=== PATIENT | male | born 1965 | race Caucasian/White ===

== ENCOUNTER → 2016-10-10 | Outpatient (CLI) | payer OTHER ==
--- NOTE | 2016-10-10 15:35 | CONS ---
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 SLEEP SCHEDULE: Patient's usual sleep schedule is from 11:00 p.m. to 6:30 a.m. FALLING ASLEEP: No problem with falling asleep. He has a TV set in bedroom. DURING SLEEP: Wakes up from sleep 3 times with nocturia. According to his , he has loud snoring and possible episodes of stopped breathing during this sleep. He hears some interruption of the snoring. DURING THE DAY/WAKE STATE: In the morning he wakes up tired, falling asleep during the day. He takes naps at around 1:00 p.m. No vivid dreams during naps. No history of hypnagogical hallucinations or sleep paralysis. [place] Sleepiness Scale is 8. PAST MEDICAL HISTORY: Positive for hypertension, acid reflux and hyperlipidemia. PAST SURGICAL HISTORY: ( ) surgery after trauma in 1991. MEDICATIONS: 1. Zocor. 2. Lisinopril. 3. Metoprolol. 4. Famotidine. 5. Aspirin. 6. Vitamin D supplement. 7. Fish oil. SOCIAL HISTORY: Negative for smoking or using alcohol. REVIEW OF SYSTEMS: Snoring, awakenings from sleep. Sometimes tiredness during the day. No fevers. No double vision. No recent chest pain. No shortness of breath. No abdominal pain. No bleeding episodes. No blood in urine. No seizure episodes. FAMILY HISTORY: Hypertension, angina, heart problems, hyperlipidemia, stroke, arthritis, lung problems, snoring, pneumonia, headaches, cancer, diabetes, acid reflux. PHYSICAL EXAMINATION: GENERAL: A 51-year-old gentleman without distress. VITAL SIGNS: BP 143/95, HR 68, RR 16. Height 5 foot 11. Weight 344. BMI 47.9, neck 21 inches in circumference. Temperature 97.5. Oxygen saturation at room air 98%. HEENT: PERRLA, EOMI evaluation of oropharynx showed extremely low position of soft palate. NECK: Supple. No JVD. Thyroid is not palpable. LUNGS: Clear to percussion and to auscultation. Good air exchange. No wheezing or rhonchi. HEART: S1, S2 regular. No murmurs, gallops or rubs. ABDOMEN: Obese. Soft and nontender. Bowel sounds are present. No organomegaly appreciated. EXTREMITIES: 1+ ankle edema. ASSISTANT SPA DIRECTOR: Awake, alert, and oriented x3. Cranial nerves 2 to 7 intact. There is no fasciculation or atrophy noted. No focal deficits observed. IMPRESSION: 1. Snoring, awakenings from sleep 3 times with nocturia, possible witnessed episodes of stopped breathing during sleep by his . Big neck 21 inches, obstructive sleep apnea-hypopnea syndrome. 2. Obesity, body mass index 47.9. 3. Hypertension. 4. Acid reflux. 5. Hyperlipidemia. 6. Slight swelling of the legs. 7. Status post face surgery in 1991 after trauma. 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 PLAN: 1. Polysomnography for evaluation of patient's breathing during sleep. 2. CPAP/BiPAP titration if sleep study confirms obstructive sleep apnea-hypopnea syndrome. 3. Preferable position during sleep on the side. 4. No driving if patient feels any sleepiness. Patient is aware of civil and criminal liability for unsafe driving. 5. I will see patient for follow-up visit to explain results of the testing and following plan. 6. I will see the patient for follow-up visit to check his clinical response on treatment, compliance on treatment. 7. He might need maintenance of wakefulness test or objective evaluation, his normal alertness during the day after he will be started on treatment with CPAP. Thank you very much for referring this patient for consultation. Sincerely, Thaddeus Jacobo MD, PhD, FAASM. Diplomat of [employer], Sleep Medicine Board by [employer] Medicine Pickling Machine Operator of [facility] [place]
== END | disposition home or self-care (01) ==
CPT/HCPCS: 99211

== ENCOUNTER → 2016-12-19 | Outpatient (CLI) | payer OTHER ==
--- NOTE | 2016-12-19 15:23 | PN ---
A 51-year-old gentleman who has been followed in the Sleep Center for treatment of severe obstructive sleep apnea-hypopnea syndrome. Recently patient had a diagnostic sleep study and CPAP titration and I discussed results of sleep test with patient and family in detail. He has severe sleep apnea, which was fixed during CPAP titration. Presently, patient is on treatment with CPAP at the pressure of 14 cm of water. Patient demonstrated usage of the machine 29 out of 30 nights and 23 out of 30 nights for more than 4 hours, average usage is 5.3 hours. Patient has quite high leak up to 59 L/min, but his mask was changed from nasal pillows to nasal mask but apnea-hypopnea index reading for the last month is great is only 0.4. [place] Sleepiness Scale is 1. MEDICATIONS: Zocor, lisinopril, metoprolol, famotidine, aspirin, fish oil, vitamin D supplement. During physical exam, gentleman without distress. BP 143/95, HR 68, RR 16. Height 5, 11. Weight 344. BMI 47.9. Neck 21 inches in circumference. Temperature 97.5. Extremely low position of soft palate. ABDOMEN: Obese. NECK: Supple. No JVD, Thyroid is not palpable. LUNGS: Clear to percussion and to auscultation. Good air exchange. No wheezing or rhonchi. HEART: S1, S2 regular. No murmurs, gallops, or rubs. OCCUPATIONAL HEALTH TECHNICIAN: Awake, alert, and oriented x3. Cranial nerves 2 to 7 intact. There is no fasciculation or atrophy noted. No focal deficits observed. IMPRESSION: 1. Extremely severe obstructive sleep apnea-hypopnea syndrome, apnea-hypopnea index 89.1 with severe oxygen desaturation to 66.9 on control with CPAP at 14 cm of water. Patient demonstrated good compliance definitely benefiting from treatment. 2. 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 I think his sleep time is slightly restricted, average 5.3 hours. He denied any sleepiness during the day. 3. Hypertension. 4. Acid reflux. 5. Hyperlipidemia. 6. Obesity, body mass index more than 48. PLAN: 1. Continue treatment with CPAP every night for the whole night. 2. Try to increase time in bed, my recommendation is 7-1/2 hours. 3. Maintenance of wakefulness test. 4. 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 5. Losing weight. 6. Sleep hygiene. 7. Precautions related to driving, no driving if feeling any sleepiness. Patient is aware about civil and criminal liability for unsafe lifter driver. Promised to follow recommendations. Thank you very much for allowing me to participate in the management of your patient. Sincerely, Thaddeus Jacobo MD, PhD, FAASM Diplomat of [employer] Medicine, Sleep Medicine Board by [employer] Medicine Director Of Training of [facility] [place]
== END | disposition home or self-care (01) ==
LOC: SLEEP 11:40
PROVIDERS: ATTEND Internal Medicine
DX: G47.33 Obstructive sleep apnea (adult) (pediatric) (principal); I10 Essential (primary) hypertension; K21.9 Gastro-esophageal reflux disease without esophagitis; E78.5 Hyperlipidemia, unspecified; E66.9 Obesity, unspecified; Z68.42 Body mass index [BMI] 45.0-49.9, adult; Z79.899 Other long term (current) drug therapy

== ENCOUNTER → 2017-01-06 | Outpatient (CLI) | payer OTHER ==
--- NOTE | 2017-01-09 22:08 | SLS ---
Maintenance of wakefulness test DATE OF SERVICE: 01/06/2017. 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 The standard montage for clinical polysomnography included electroencephalogram, the electrooculogram, the mentalis surface electromyography. Video monitoring. Trial was done for time by 14 minutes. Patient passed maintenance of wakefulness test, did not fall asleep during the four trials. IMPRESSION: 1. Extremely severe obstructive sleep apnea-hypopnea syndrome. 2. The patient passed maintenance of wakefulness test, which indicates his normal alertness during the day. PLAN: 1. I will see the patient for follow-up visit to explain the results of test and recommendations. 2. Continue using the CPAP equipment every night. 3. Precautions related to driving, no driving if feeling any sleepiness. 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 Thank you very much for allowing me to participate in the management your patient. Sincerely, Thaddeus Jacobo MD, PhD, FAASM. Diplomat of [place] [employer], Sleep Medicine Board by [place] [employer] [place] Retail Service Specialist of [facility] [place]
== END | disposition home or self-care (01) ==
LOC: SLEEP 06:41
PROVIDERS: ATTEND Internal Medicine
DX: G47.33 Obstructive sleep apnea (adult) (pediatric) (principal); Z99.89 Dependence on other enabling machines and devices; E66.9 Obesity, unspecified; Z68.42 Body mass index [BMI] 45.0-49.9, adult; I10 Essential (primary) hypertension; K21.9 Gastro-esophageal reflux disease without esophagitis; Z79.899 Other long term (current) drug therapy; E78.5 Hyperlipidemia, unspecified
CPT/HCPCS: 80306; 95805

== ENCOUNTER → 2017-02-03 | Outpatient (CLI) | payer OTHER ==
--- NOTE | 2017-02-03 13:01 | EST ---
DATE OF SERVICE: 02/03/2017 AGE: 51Y SEX: M HT: 72" WT: 334 lbs. Protocol Jerel: X Other: Stress Stage: 2 Dur. of Exercise: 6:00 *Heart Rate Blood Pressure *Rest: 76 Rest: 150/95 * *Max. Achieved: 156 Maximum BP: 231/93 85% PMHR: 143 100% PMHR: 168 *METS: 7.3 INDICATIONS: Chest pain. MEDICATIONS: Cholesterol pill, BP pill, aspirin, fish oil, vitamin D. Baseline rhythm is sinus mechanism, rate of 76, normal axis and intervals. Normal electrocardiogram. Baseline blood pressure 150/95 mmHg. Patient exercised on Jerel protocol for 6 minutes reaching peak rate of 156 beats per minute, which is equal to 92% maximum predicted heart rate; peak blood pressure 231/93 mmHg. The test was terminated due to fatigue. There was no chest pain. Electrocardiographic monitoring revealed occasional PVCs. There was no evidence of diagnostic ischemic ST deviation. CONCLUSION: 1. Average exercise tolerance with no symptoms of chest pain. 2. Occasional premature ventricular contractions. 3. Normal electrocardiograph response to exercise with no evidence exercise-induced ischemia.
== END | disposition home or self-care (01) ==
LOC: RADNMMAIN 11:29
PROVIDERS: ATTEND Internal Medicine
DX: R07.9 Chest pain, unspecified (principal)
CPT/HCPCS: 93017

== ENCOUNTER → 2017-05-26 | Outpatient (CLI) | payer OTHER ==
--- NOTE | 2017-05-26 11:41 | XR ---
EXAMINATION TYPE: XR shoulder complete RT DATE OF EXAM: 05/26/2017 COMPARISON: NONE HISTORY: Pain TECHNIQUE: Shoulder examined in 3 FINDINGS: The humeral head articulates with the glenoid. There may be some downward sloping acromion. The acromioclavicular junction appears intact with minim al inferior spurring. No acute fractures or dislocations are evident. A follow up study can be performed 7-10 days from acute trauma for continued pain. IMPRESSION: 1. No suspicious osseous changes evident. 2. Mild degenerative change acromioclavicular junction
--- NOTE | 2017-05-26 11:46 | XR ---
EXAMINATION TYPE: XR cervical spine comp DATE OF EXAM: 05/26/2017 TECHNIQUE: Frontal, lateral, oblique, swimmers, and open mouth view of the cervical spine are obtaine d. HISTORY: M54.2 cervical pain COMPARISON: None FINDINGS: The cervical spine is visualized in its entirety from C1 thru the top of T1 level, it is s atisfactory in alignment without evidence of acute fracture or dislocation. The pre-vertebral soft t issue appears within normal limits. Odontoid appears unremarkable as visualized. Tip is somewhat obsc ured by the occiput. The oblique images are within normal limits. Cervical spine is straightened in t he sagittal plane. IMPRESSION: No acute fracture or dislocation is seen in the cervical spine.
== END ==
LOC: RADXRMAIN 10:17
PROVIDERS: ATTEND Internal Medicine
DX: M54.2 Cervicalgia (principal); M19.011 Primary osteoarthritis, right shoulder
CPT/HCPCS: 72050

== ENCOUNTER 2017-08-05 07:19 | Day surgery (SDC) | payer OTHER ==
[2017-08-01 14:49] VITALS: BMI 44.7
[~2017-08-05 07:19] MED LIST: LACTATED RINGERS 1,000 ML IV SCH
[2017-08-05 07:30] VITALS: RESP 16; TEMP 98.6
[2017-08-05] MEDS ORDERED: LIDOCAINE 1% 20 ML VIAL (10MG/ML) FOR IV START INTRADERMA ONE (07:39)
[2017-08-05] MEDS ORDERED: LIDOCAINE 1% INJ 10MG/ML (20 ML MDV) ONE (08:44)
[2017-08-05] MEDS ORDERED: PROPOFOL 10 MG/ML 20 ML VIAL IV ONE (08:44)
--- NOTE | 2017-08-05 09:07 | P.DS ---
Providers Attending physician: Dior Mcdonald Primary care physician: Chicho Alberts Plan - Discharge Summary New Discharge Prescriptions: No Action Metoprolol Tartrate 25 mg PO BID Simvastatin [Zocor] 40 mg PO DAILY Lisinopril [Prinivil] 20 mg PO DAILY Aspirin [Adult Low Dose Aspirin EC] 81 mg PO DAILY Cholecalciferol [Vitamin D3] 1,000 unit PO DAILY Sabina-3 Fatty Acids/Fish Oil [Fish Oil 1,000 mg Softgel] 1 each PO DAILY Discharge Medication List Aspirin [Adult Low Dose Aspirin EC] 81 mg PO DAILY 04/05/16 [History] Lisinopril [Prinivil] 20 mg PO DAILY 04/05/16 [History] Metoprolol Tartrate 25 mg PO BID 04/05/16 [History] Simvastatin [Zocor] 40 mg PO DAILY 04/05/16 [History] Cholecalciferol [Vitamin D3] 1,000 unit PO DAILY 08/01/17 [History] Sabina-3 Fatty Acids/Fish Oil [Fish Oil 1,000 mg Softgel] 1 each PO DAILY [History] Discharge Disposition: HOME SELF-CARE
--- NOTE | 2017-08-05 09:07 | P.PCN ---
Date of Procedure: 08/05/17 Preoperative Diagnosis: Patient is a 52-year-old white male with a prior history of an adenomatous polyp of the colon he comes for repeat colonoscopy Postoperative Diagnosis: Polyp in right colon, scattered diverticuli, internal hemorrhoids Procedure(s) Performed: Colonoscopy Anesthesia: MAC Surgeon: Dior Mcdonald Estimated Blood Loss (ml): 0 IV fluids (ml): 200 Pathology: other (Polyp right colon removed with snare polypectomy and retrieved ) Condition: stable Disposition: PACU Indications for Procedure: Prior history of adenomatous colon polyp Operative Findings: Colon polyp removed with snare polypectomy and retrieved, in proximity questionable heaped up mucosa near the area of the diverticular opening Beginning of small diverticuli Internal hemorrhoids Description of Procedure: Patient was taken to the endoscopy room and placed in the left lateral decubitus position. Following sedation rectal examination was performed. Patient was noted to have adequate sphincter tone no masses. Colonoscope was passed through the anus into the rectum. Was passed through the sigmoid colon up to splenic flexure. Through the transverse colon hepatic flexure right colon down to the area of the cecum. In the distal right colon there appeared to be a small polyp and this was removed with snare polypectomy and retrieved. The proximity of this initially there was seen a small mucosal change which was believed to be possibly near diverticulum and this was not felt to more biopsy at this time. Upon removal of the scope proximally 6 minutes were taken to remove the scope from the area of the cecum to the rectum. No lesions of concern were noted in the cecum no other lesions of concern in the right colon. No lesions of concern in the transverse colon. No lesions of concern in the left colon and the sigmoid colon beginning of diverticular pets identified. Scope was brought down to the rectum where it was retroflexed internal hemorrhoids identified. Impression/plan: 1. Internal hemorrhoids 2. Beginning of diverticuli 3. Polyp right colon removed with snare polypectomy and retrieved 4. Questionable mucosal change in the vicinity which was not reproduced and did not undergo biopsy Plan: 1. Conservative management of hemorrhoids and diverticuli 2. Await results of polypectomy most likely repeat colonoscopy in 3-5 years
[2017-08-05 09:37] VITALS: BP 124/67; PULSE 63
== END 2017-08-05 09:53 | disposition home or self-care (01) ==
LOC: ORWHC2ENDO 07:19
PROVIDERS: ATTEND Surgery
DX: Z12.11 Encounter for screening for malignant neoplasm of colon (principal); K63.5 Polyp of colon; K57.30 Diverticulosis of large intestine without perforation or abscess without bleeding; K64.8 Other hemorrhoids; E78.5 Hyperlipidemia, unspecified; M19.90 Unspecified osteoarthritis, unspecified site; I10 Essential (primary) hypertension; K21.9 Gastro-esophageal reflux disease without esophagitis; G47.33 Obstructive sleep apnea (adult) (pediatric); I25.2 Old myocardial infarction; Z79.82 Long term (current) use of aspirin; Z79.899 Other long term (current) drug therapy; Z86.010 Personal history of colon polyps; Z82.49 Family history of ischemic heart disease and other diseases of the circulatory system
CPT/HCPCS: 45385; 88305; J2001; J2704

== ENCOUNTER → 2017-10-11 | Outpatient (CLI) | payer OTHER ==
--- NOTE | 2017-10-12 00:25 | MR ---
EXAMINATION TYPE: MR knee RT wo con DATE OF EXAM: 10/11/2017 COMPARISON: NONE HISTORY: Right knee pain after slip and fall injury 4 weeks ago. TECHNIQUE: Multiplanar, multisequence images of the knee is performed without IV contrast. FINDINGS: MEDIAL MENISCUS: Anterior horn is intact without tear. There is globular and triangular-shaped increa sed signal posterior horn of medial meniscus extending to inferior articular surface. There is medial extrusion of medial meniscus on coronal images increased signal central body. LATERAL MENISCUS: Anterior horn is intact without tear. There is globular increased signal deeper asp ect posterior horn of lateral meniscus seen best coronal image 26 and sagittal image 24 does not defi nitely extend to articular surface. CRUCIATE LIGAMENTS: The anterior and posterior cruciate ligaments are intact and unremarkable. COLLATERAL LIGAMENTS: The medial collateral ligament and lateral collateral ligament complex are inta ct. Mild to moderate fluid signal surrounds lateral collateral ligament complex is seen best on coron al image 23 and mild fluid signal surrounds medial collateral ligament. EXTENSOR MECHANISM: Visualized quadriceps and patellar tendons are intact. EFFUSION: There is large suprapatellar joint effusion. POPLITEAL CYST: No popliteal/lopez cyst. TRICOMPARTMENT SPACES: There is moderate tricompartment joint space loss and spurring. CARTILAGE: There is chondromalacia patella with thinning of articular cartilage posterior patellar po le. No full-thickness loss is present. There is marked thinning of articular cartilage medial tibiofe moral compartment with some early erosive changes seen at this level. BONE MARROW SIGNAL: No focal abnormal marrow signal is appreciated. OTHER: There is prominent prepatellar and superficial infrapatellar fluid signal. IMPRESSION: 1. Full-thickness tear posterior horn of medial meniscus extending towards central body along medial margin. 2. Background moderate tricompartment degenerative changes with full-thickness cartilaginous loss and early osseous erosive changes medial tibiofemoral compartment noted. 3. Large suprapatellar joint effusion. 4. Intrasubstance tear posterior horn of lateral meniscus. 5. [id number] LCL sprain injury. 6. Mild MCL sprain injury.
== END | disposition home or self-care (01) ==
LOC: RADMRIMAIN 08:58
PROVIDERS: ATTEND Internal Medicine
DX: S83.241A Other tear of medial meniscus, current injury, right knee, initial encounter (principal); S83.281A Other tear of lateral meniscus, current injury, right knee, initial encounter

== ENCOUNTER → 2017-11-25 | Outpatient (CLI) | payer OTHER ==
--- NOTE | 2017-11-25 15:25 | PN ---
PROGRESS NOTE This is a followup from Sleep Center. This is a very pleasant, obese, 52-year-old male patient diagnosed having severe symptomatic obstructive sleep apnea with an AHI of 89.1. Initially the patient was titrated to a CPAP pressure of 17 cm of water. He had difficulty tolerating the CPAP and ultimately his pressure was dropped down to 14 cm of water. He is coming in for an annual check. He is looking well. He is going to bed around 11:30 p.m., wakes up 6:00 a.m. in the morning. He feels refreshed. He is utilizing his CPAP every night. He continues to benefit from the treatment and he states that he cannot fall asleep without having the machine on. His compliance data reflects that. He is utilizing his CPAP every night. His compliancy for more than 4 hours is 100% and he is averaging around 6.7 hours of sleep at night. His AHI is down to 0.4 while on treatment. His leak factor is 53 L/minute and the patient utilizing a Mirage wide FX nose mask. No recent weight gain or weight loss. No other complaints otherwise for now. REVIEW OF SYSTEMS: Hypersomnia and sleepiness has improved. No snoring while on the CPAP treatment. Denies having any nocturia. No apneas at nighttime. No waking up choking or gasping for air. No grinding of the teeth. No anxiety or panic attacks. No palpitation. No heartburn and chest pain. No anxiety. No depression. No claustrophobia. No other complaints. His current vital signs: His blood pressure is 159/88, pulse 88, respirations 16, temperature 98 saturation 96% on room air. Weight is 350, height is 71 inches, BMI 66.1, and neck size 22.5. [place] score is 1. GENERAL APPEARANCE: Obese, calm, comfortable. Head is atraumatic, normocephalic. Neck is short supple. No guarding. There is excessive crowding of posterior pharynx. No goiter or neck masses. LUNGS: Diminished otherwise clear. HEART: Sounds regular rhythm. Normal S1, S2. No S3. No murmurs. ABDOMEN: Soft, nontender. No organomegaly. EXTREMITIES: No edema. No cyanosis or clubbing. NEUROLOGIC: Alert and oriented x3. There is no focal neurological deficits. PSYCHIATRIC: Appropriate mood and affect. SKIN: No ulcerations or wounds. IMPRESSION: 1. Severe symptomatic obstructive sleep apnea with an AHI of 89, currently on CPAP pressure of 14 cm of water with excellent clinical response and compliance. The patient continues to benefit from the treatment and the patient is very compliant. 2. Hypersomnia recovered. [place] score is down to 1. 3. Obesity with a BMI of 66. 4. Hypertension. 5. Hyperlipidemia. PLAN: 1. I noted the patient was having excessive leaks around the mask. I offered them an AirFit N10 large-sized nose mask if he would like and he decided to switch the mask from a Vazquez FX to an AirFit N10. 2. Continue same pressure setting which would be a CPAP pressure of 14 cm of water. 3. Keep the humidity at 1. 4. Encourage weight loss. 5. Implement good sleep hygiene measures. 6. See me back in a year's time in follow up or earlier if needed. MMROMEL / IJN: [id number] /
== END | disposition home or self-care (01) ==
LOC: SLEEP 13:31
PROVIDERS: ATTEND Internal Medicine Critical Care Medicine
DX: G47.33 Obstructive sleep apnea (adult) (pediatric) (principal); G47.10 Hypersomnia, unspecified; E66.9 Obesity, unspecified; I10 Essential (primary) hypertension; E78.5 Hyperlipidemia, unspecified; Z68.44 Body mass index [BMI] 60.0-69.9, adult; Z99.89 Dependence on other enabling machines and devices
CPT/HCPCS: 99211

== ENCOUNTER → 2017-12-09 | Outpatient (CLI) | payer OTHER ==
[2017-12-09 13:36] LABS: Basophils % (A) 0 %; Eosinophils # (A) 0.1 k/uL (0-0.7); Eosinophils % (A) 1 %; HCT 45.8 % (39.0-53.0); HGB 15.9 gm/dL (13.0-17.5); Lymphocytes # (A) 1.1 k/uL (1.0-4.8); Lymphocytes % (A) 13 %; MCH 29.3 pg (25.0-35.0); MCHC 34.8 g/dL (31.0-37.0); MCV 84.2 fL (80.0-100.0); Mean Platelet Volume 6.9; Monocytes # (A) 0.5 k/uL (0-1.0); Monocytes % (A) 6 %; Neutrophils # (A) 6.4 k/uL (1.3-7.7); Neutrophils % (A) 78 %; Platelet Count 261 k/uL (150-450); RBC 5.43 m/uL (4.30-5.90); RDW 12.6 % (11.5-15.5); WBC 8.2 k/uL (3.8-10.6)
[2017-12-09 13:47] LABS: ALT 42 U/L (21-72); AST 27 U/L (17-59); Albumin 4.2 g/dL (3.5-5.0); Alkaline Phosphatase 110 U/L (38-126); Amylase 36 U/L (30-110); Anion Gap 12 mmol/L; Blood Urea Nitrogen 14 mg/dL (9-20); Calcium 9.3 mg/dL (8.4-10.2); Carbon Dioxide 27 mmol/L (22-30); Chloride 100 mmol/L (98-107); Glucose 102 mg/dL (74-99); Lipase 40 U/L (23-300); Potassium 4.4 mmol/L (3.5-5.1); Sodium 139 mmol/L (137-145); Total Bilirubin 0.9 mg/dL (0.2-1.3); Total Protein 7.5 g/dL (6.3-8.2)
--- NOTE | 2017-12-09 13:58 | XR ---
EXAMINATION TYPE: XR abdomen complete w decub DATE OF EXAM: 12/09/2017 HISTORY: Pain. Technique: 7 views of the abdomen are submitted. Comparison: None. Findings: There is no convincing evidence of pneumoperitoneum. The Bowel gas pattern is nonspecific and nonobstructive. No sizable air-fluid levels are seen. No mass effects are noted. No renal calcifications are identified. IMPRESSION: 1. Nonspecific nonobstructive bowel gas pattern
== END | disposition home or self-care (01) ==
LOC: LABWHC1 13:05
PROVIDERS: ATTEND Internal Medicine
DX: R10.84 Generalized abdominal pain (principal)
CPT/HCPCS: 36415; 74021; 80053; 82150; 83690; 85025

== ENCOUNTER 2018-01-29 07:38 | Day surgery (SDC) | payer OTHER ==
[2018-01-26 15:13] VITALS: BMI 46.0
--- NOTE | 2018-01-28 16:14 | HP ---
HISTORY AND PHYSICAL REASON FOR ADMISSION: Surgery date scheduled for 01/29/2018. HISTORY AND PHYSICAL: Emigdio Silverio is a 52-year-old patient seen with progressive right knee pain. Treatment options were discussed. He elected to proceed with right knee arthroscopy. Consent regarding the procedure was obtained. Preoperative medical clearance was provided by Dr. Alberts. PAST MEDICAL HISTORY: Hypertension, hyperlipidemia. PAST SURGICAL HISTORY: None reported. MEDICATIONS: Lisinopril, metoprolol, Zocor, Naprosyn. ALLERGIES: None. SOCIAL HISTORY: The patient denies tobacco use. PHYSICAL EXAMINATION: Evaluation of the right knee range of motion 0 to 120 degrees. Tenderness medial joint line. Positive medial Rama's. Medial and patellofemoral crepitus. Range of motion. Ligaments stable. Hip rotation without pain. Distal neurovascular exam intact. RADIOGRAPHS: Radiographs of the right knee revealed moderate osteoarthritis of the right knee. MRI revealed medial meniscal tear. IMPRESSION: Internal derangement, right knee with medial meniscal tear. PLAN: Right knee arthroscopy with partial meniscectomy and debridement. Surgery scheduled for 01/29/18. MMODL / IJN: [id number] /
[~2018-01-29 07:38] MED LIST changes: +LIDOCAINE 1% 20 ML VIAL (10MG/ML) FOR IV START INTRADERMA PRN
[2018-01-29] MEDS ORDERED: ONDANSETRON 4 MG/2 ML VIAL IVP ONE (08:27)
[2018-01-29] MEDS ORDERED: DEXAMETHASONE SOD PHOS (MDV) 100 MG/10 ML VIAL IVP ONE (08:28)
[2018-01-29] MEDS ORDERED: ALBUTEROL INHALER 60 PUFF/8 GM INHALER INHALATION ONE (09:50)
[2018-01-29] MEDS ORDERED: PROPOFOL 10 MG/ML 20 ML VIAL IV ONE (09:50)
[2018-01-29] MEDS ORDERED: MIDAZOLAM 2 MG/2 ML VIAL ONE (09:50)
[2018-01-29] MEDS ORDERED: fentaNYL (PF) 50 MCG/ML 2 ML AMP ONE (09:50)
[2018-01-29] MEDS ORDERED: LIDOCAINE 1% INJ 10MG/ML (20 ML MDV) ONE (09:50)
[2018-01-29] MEDS ORDERED: SUCCINYLCHOLINE CHLORIDE VIAL 200 MG/10 ML VIAL IV ONE (09:50)
[2018-01-29] MEDS ORDERED: BUPIVACAINE (PF) 0.25% 30 ML VIAL SQ ONE (10:12)
[2018-01-29] MEDS ORDERED: LACTATED RINGERS 1,000 ML IV ONE ×2 (10:32)
--- NOTE | 2018-01-29 10:49 | P.OP ---
Date of Procedure: 01/29/18 Preoperative Diagnosis: Internal derangement right knee Postoperative Diagnosis: 1. Tear medial and lateral meniscus right knee 2. 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 Grade 3/4 chondromalacia lateral femoral condyle right knee 4. Grade 3/4 chondromalacia patellofemoral joint right knee 5. Reactive synovitis medial and suprapatellar compartments right knee Procedure(s) Performed: 1. Arthroscopic partial medial and lateral meniscectomy right knee 2. Arthroscopic chondroplasty medial femoral condyle and tibial plateau right knee 3. Arthroscopic chondroplasty lateral femoral condyle right knee 4. Arthroscopic microfracture lateral femoral condyle right knee 5. Arthroscopic chondroplasty patellofemoral joint right knee 6. Arthroscopic partial synovectomy medial and suprapatellar compartments right knee Anesthesia: KARINA, local Surgeon: Pantera Foy Estimated Blood Loss (ml): 9 Pathology: none sent Condition: stable Disposition: PACU Indications for Procedure: 52-year-old patient seen with progressive right knee pain. After treatment options were discussed, he elected to proceed with arthroscopy. Operative Findings: see description of procedure Description of Procedure: Patient was taken to the operative suite. Patient underwent a general anesthetic by the department of anesthesia. Patient was given preoperative antibiotics. The right lower extremity was placed in a well-padded arthroscopic leg smith. The right leg was prepped and draped in the normal sterile orthopedic fashion. A lateral parapatellar and suprapatellar incision was made. Trochars were inserted. Arthroscopy was initiated. Suprapatellar pouch revealed diffuse thick reactive synovitis. The patellofemoral joint appeared articulate congruently. There grade 3/4 chondromalacia of both the patella and femoral sulcus with diffuse osteochondral tears present. The scope was guided into the medial gutter. No loose bodies or plica were identified. The scope was then guided into the medial compartment. A medial parapatellar incision was made. Trocar inserted followed by probe. Was a tear involving the posterior horn of the medial meniscus. There were grade 3 and 4 chondromalacia changes of both the femoral condyle and tibial plateau with some areas of exposed bone on both size. There was reactive synovitis anteriorly. I performed a partial medial meniscectomy down to stable tissue. I performed a chondroplasty of both the femoral condyle and tibial plateau down to stable tissue. I performed a partial synovectomy. The residual meniscus was stable. The residual osteochondral surfaces were stable. Scope and probe were then guided into the intercondylar notch. Cruciates were identified, probed and found to be stable. The scope and probe were then guided into lateral compartment. There was a radial tear involving the midbody of the lateral meniscus. There was some superficial tearing of the posterior lateral meniscus. There was a central area weightbearing surface lateral femoral condyle with grade 3/4 chondromalacia changes and osteochondral flap tears. I performed a partial lateral meniscectomy down to stable tissue. I performed a chondroplasty of the femoral condyle down to stable tissue. There was a small central area of exposed bone. I performed a microfracture there. The peripheral articular tissue was stable. The residual meniscus was stable. The scope was in guided back into the suprapatellar compartment. I introduced a motorized shaver into the super patellar compartment. I debrided some piecemeal fragments of meniscus I encountered. I performed a chondroplasty of both the patella and femoral sulcus getting down to stable osteochondral tissue. There were areas of exposed bone on both size. I performed a partial synovectomy. The shaver was now removed. I took one more look around the entire knee, no residual debris. Instruments were now removed from the joint. The joint was infiltrated with .25% Marcaine. Steri-Strips were applied to the portal sites. Sterile dressings were applied. The patient was placed into a BELLO hose. No tourniquet was utilized. The patient was awakened, transferred to a bed and taken to recovery stable satisfactory condition.
[2018-01-29 10:56] VITALS: RESP 16; TEMP 96.8
[2018-01-29] MEDS: HYDROmorphone 0.5 MG/0.5 ML SYRINGE IVP ONE ×2 (11:19→11:28)
[2018-01-29 12:33] VITALS: BP 137/80; PULSE 56
== END 2018-01-29 13:01 | disposition home or self-care (01) ==
LOC: OR 07:38
PROVIDERS: ATTEND Orthopaedic Surgery
DX: M23.321 Other meniscus derangements, posterior horn of medial meniscus, right knee (principal); M23.361 Other meniscus derangements, other lateral meniscus, right knee; M65.861 Other synovitis and tenosynovitis, right lower leg; M22.41 Chondromalacia patellae, right knee; I10 Essential (primary) hypertension; E78.5 Hyperlipidemia, unspecified; G47.33 Obstructive sleep apnea (adult) (pediatric); I25.2 Old myocardial infarction; I25.10 Atherosclerotic heart disease of native coronary artery without angina pectoris; K21.9 Gastro-esophageal reflux disease without esophagitis; E66.01 Morbid (severe) obesity due to excess calories; Z79.82 Long term (current) use of aspirin; Z79.899 Other long term (current) drug therapy; Z79.1 Long term (current) use of non-steroidal anti-inflammatories (NSAID); Z68.42 Body mass index [BMI] 45.0-49.9, adult
CPT/HCPCS: 29880; 29879; J2250; J0330; J0690; J2405; J2001; J3010; J1100; J2704; J1170

== ENCOUNTER → 2018-06-11 | Outpatient (CLI) | payer OTHER ==
--- NOTE | 2018-06-11 14:10 | CT ---
EXAMINATION TYPE: CT ankle RT wo con DATE OF EXAM: 06/11/2018 COMPARISON: Outside x-ray dated 06/10/2018 HISTORY: Fx of Rt lower extremity CT DLP: 200 mGycm TECHNIQUE: Axial, sagittal and coronal images are obtained. 3-D images submitted performed by the michael hnologist. FINDINGS: There is an oblique displaced fracture involving the distal diaphysis of the fibula. There is diffuse soft tissue edema. There is asymmetry of the ankle mortise compatible with the x-ray findings. There is a displaced fracture involving the lateral portion of the epiphysis of the tibia with displa cement extending to the articular surface. There is additional bony density lying between the tibia and fibula the level the ankle joint which m ay represent additional chip or avulsion fracture. If there is concern for ligamentous or tendinous i njury correlate with MRI. There is a large calcaneal plantar spur. Tiny spur involving the insertion of the Achilles. IMPRESSION: 1. Displaced distal diaphyseal fracture oblique orientation fibula. 2. Displaced fracture lateral margin the epiphysis tibia with asymmetry of the ankle mortise. Questio n a second chip or tiny avulsion fracture as discussed above involving the distal tibia.
== END | disposition home or self-care (01) ==
LOC: RADCTMAIN 11:26
PROVIDERS: ATTEND Orthopaedic Surgery
DX: S82.431D Displaced oblique fracture of shaft of right fibula, subsequent encounter for closed fracture with routine healing (principal); S82.301D Unspecified fracture of lower end of right tibia, subsequent encounter for closed fracture with routine healing

== ENCOUNTER 2018-06-19 08:19 | Inpatient (IN) | payer OTHER ==
[2018-06-16 11:44] VITALS: BMI 45.4
[~2018-06-19 08:19] MED LIST changes: +ACETAMINOPHEN TAB 500 MG TAB PO ONE; +DEXAMETHASONE SOD PHOSPHATE 10 MG/ML 1 ML VIAL IV ONE; -LIDOCAINE 1% 20 ML VIAL (10MG/ML) FOR IV START INTRADERMA PRN; +MIDAZOLAM 2 MG/2 ML VIAL IV PRN; +ONDANSETRON 4 MG/2 ML VIAL IVP ONE; +SCOPOLAMINE 1.5MG/72HR PATCH TRANSDERM ONE
[2018-06-19] MEDS ORDERED: MIDAZOLAM 2 MG/2 ML VIAL ONE (10:27)
[2018-06-19] MEDS ORDERED: fentaNYL (PF) 50 MCG/ML 2 ML AMP ONE (10:27)
[2018-06-19] MEDS ORDERED: SUCCINYLCHOLINE CHLORIDE 100 MG/5 ML SYR IV ONE (10:27)
[2018-06-19] MEDS ORDERED: LIDOCAINE 1% INJ 10MG/ML (20 ML MDV) ONE (10:27)
[2018-06-19] MEDS ORDERED: PROPOFOL 10 MG/ML 20 ML VIAL IV ONE (10:27)
[2018-06-19] MEDS ORDERED: PHENYLEPHRINE-0.9% NACL SYG 1 MG/10 ML SYRINGE ONE (10:27)
[2018-06-19] MEDS ORDERED: HYDROmorphone (PF) 1 MG/ML ONE (10:27)
[2018-06-19] MEDS ORDERED: ceFAZolin 3,000 MG in SODIUM CHLORIDE 0.9% IRRIGATIO 3,000 ML IRRIGATION ONE (11:24)
[2018-06-19] MEDS ORDERED: BACITRACIN 500 UNIT/GM OINT 28.4 GM TUBE TOPICAL ONE (12:17)
[2018-06-19] MEDS ORDERED: LACTATED RINGERS 1,000 ML IV ONE (12:38)
--- NOTE | 2018-06-19 13:08 | FL ---
EXAMINATION TYPE: FL guidance operating room, XR ankle limited RT DATE OF EXAM: 06/19/2018 CLINICAL HISTORY: Right ankle open reduction internal fixation TECHNIQUE: Fluoroscopy. COMPARISON: None. FINDINGS/IMPRESSION: Fluoroscopic guidance was provided during procedure performed by Dr. Arechiga. A total of 14 seconds of fluoroscopic time was utilized during the procedure and 2 spot images was acqu ired during a right ankle open reduction internal fixation.
[2018-06-19 13:09] VITALS: TEMP 96.9
--- NOTE | 2018-06-19 13:13 | P.ONQ ---
Anesthesiology Proc Note - PNB - Peripheral Nerve Block Performed Right Popliteal Time Out Performed: Yes Procedure Start Time: 11:59 Procedure Stop Time: 12:04 Indication: Acute Post-Operative Pain, Analgesia, Requested by physician Specifically requested for management of pain by DrHany: Ike Arechiga Sedation Type: Awake Preparation: Sterile Prep Position: Supine Catheter: None Needle Types: On-Q Needle Size: 100mm (4") Needle Gauge: 20 Technique: Ultrasound Injectate: Other (see comment) (bupivacaine 0.5% 20cc) Blood Aspirated: No Pain Paresthesia on Injection Noted: No Resistance on Injection: Normal Events: Uneventful and Well Tolerated
[2018-06-19] MEDS: HYDROmorphone 0.5 MG/0.5 ML SYRINGE IVP PRN ×2 (13:16→13:20)
[2018-06-19 13:37] VITALS: RESP 16
--- NOTE | 2018-06-19 14:08 | P.OP ---
Date of Procedure: 06/19/18 Procedure(s) Performed: PREOPERATIVE DIAGNOSES: 1. Right ankle lateral fracture, Aguila C bimalleolar-equivalent fracture 2. Right ankle syndesmosis disruption, distal tibio-fibular joint POSTOPERATIVE DIAGNOSES: 1. Right ankle lateral malleolus fracture, displaced 2. Right ankle syndesmosis disruption, disal tibio-fibular joint PROCEDURES PERFORMED: 1. Right ankle lateral malleolus fracture open reduction and internal fixation. 2. Right ankle reduction and fixation of syndesmosis disruption with [employer] Tightrope system ANESTHESIA: bulk plant agent: Milly Lundy PA-C (assistance with exposure, hemostasis, retraction, fixation, closure, dressing, splint) COMPLICATIONS: None ESTIMATED BLOOD LOSS: Less than 10 mL. TOURNIQUET: approximately 70 minutes DISPOSITION: To post-anesthesia care unit INDICATIONS: The patient is a 53-year-old male nonsmoker, who presents to the operating room today for fixation of right ankle fracture. The fracture is a Aguila C, with a fracture of the lateral malleolus that is high enough to produce talar instability. The medial malleolus is not fractured. There does appear to be syndesmotic disruption which I plan to fix with [employer] Tightrope(s ). I have discussed these issues with the patient, who wishes to proceed with the operative plan. I have explained the details of this surgery thoroughly and also explained the potential risks and complications. These are inclusive of, but not limited to: bleeding, infection, scarring, discomfort, blood vessel and nerve damage, stiffness, weakness, need for further surgery, failure to relieve symptoms, persistence or worsening of problems, , and other risks. The patient is aware of these risks, and agrees to proceed with surgery. The consent form has been signed. PROCEDURE: After appropriate consent was obtained, the patient was taken to the operating room and placed supine on the operating table. General anesthesia was initiated. The ankle was removed from the splint and examined for any signs of significant fracture blisters or swelling that would prevent continuation of the surgery. Skin appeared healthy and intact, swellling was moderate but not excessive. One small fracture blister was present posterior and proximal to the planned incision. The limb was prepped and draped in the usual aseptic fashion with ChloraPrep, and the patient was given IV antibiotics. The tourniquet was then inflated to 350 mmHg after careful exsanguination of the limb. Time out was called, confirming patient identity, side, procedure, and administration of antibiotics. Incision was created laterally, centered over the fracture site, for a length of approximately 6 inches. The incision was carried down through skin and into subcutaneous tissues, and blunt dissection then proceeded down to fascia. Fascia was split in line with the incision and the peroneal muscles were retracted posteriorly. Care was taken to identify and protect the superficial peroneal nerve. The fracture site was exposed with subperiosteal dissection for as much exposure of the bone as was necessary. Fracture hematoma was evacuated and the interior of the fracture site was meticulously cleansed with irrigation and manual extraction of organizing hematoma and bone debris. The fracture was minimally comminuted and oblique in orientation. The fracture was mobilized using a white elevator and reduction was accomplished using a bone clamp , which was also used to secure the fracture. Anatomic reduction was accomplished. An interfragmentary screw was placed anterior to posterior across the fracture site, securing fixation. Next, a 10 hole recon fibular plate from [employer] was selected. It was minimally contoured to match the contour of the posterior lateral fibula. The proximal holes were filled with fully threaded 3.5 mm cortical screws. Distal holes were filled with 4 mm cancellus screws. 2 Tight ropes were then placed through the appropriate holes of the lateral plate, guided with C-arm imaging. The syndesmosis was held in a reduced position with manual pressure. A clamp was not used. The syndesmosis was held together and the tight rope was then deployed and tightened. Prior to cutting the sutures, the ankle was taken through range of motion and stress testing under C-arm imaging which showed excellent reduction of both the syndesmosis and the talus. The talus was stable to external rotation force as well as lateral shuck testing and extremes of flexion and extension. Screw lengths were noted to be appropriate and the incision was then irrigated thoroughly using normal saline. Tourniquet was deflated and hemostasis was obtained using electrocautery. Fascial closure was performed with 0-Vicryl suture, subcutaneous closure with 2-0 Vicryl suture. Skin was closed with 3-0 running strata fix suture and subsequently Dermabond tape. Sterile dressing was applied and well padded, well molded short leg splint was applied with the ankle in neutral. Patient tolerated the procedure well and taken to recovery room in stable condition. Sponge and needle counts were correct.Patient tolerated the procedure well and taken to recovery room in stable condition. Sponge and needle counts were correct.
[2018-06-19 14:57] VITALS: BP 102/65; PULSE 58
[2018-06-19] MEDS ORDERED: ONDANSETRON 4 MG/2 ML VIAL IVP ONE ×2 (15:05)
== END 2018-06-19 15:56 | disposition home or self-care (01) | DRG 494 ==
LOC: 2ORMAIN 08:19
PROVIDERS: ADMIT Orthopaedic Surgery; ATTEND Orthopaedic Surgery
PROC: 0SSF04Z Reposition Right Ankle Joint with Internal Fixation Device, Open Approach (ICD-10-PCS; 2018-06-19)
PROC: 0QSJ04Z Reposition Right Fibula with Internal Fixation Device, Open Approach (ICD-10-PCS; principal; 2018-06-19 10:00)
DX: S82.61XA Displaced fracture of lateral malleolus of right fibula, initial encounter for closed fracture (principal); S93.431A Sprain of tibiofibular ligament of right ankle, initial encounter; I10 Essential (primary) hypertension; E78.5 Hyperlipidemia, unspecified; Z83.3 Family history of diabetes mellitus; Z82.49 Family history of ischemic heart disease and other diseases of the circulatory system; I51.9 Heart disease, unspecified; Z79.82 Long term (current) use of aspirin; Z79.899 Other long term (current) drug therapy

== ENCOUNTER → 2018-09-10 | Outpatient (CLI) | payer OTHER ==
--- NOTE | 2018-09-10 15:03 | US ---
EXAMINATION TYPE: US venous doppler duplex LE DATE OF EXAM: 09/10/2018 1:47 PM COMPARISON: NONE CLINICAL HISTORY: E63.8, M79.604, M79. 605. Broken bone right lower leg 06/02, edema right leg since. Wound lateral mid/lower right leg since 07/02 SIDE PERFORMED: Bilateral LOWER EXTREMITY VENOUS INSUFFICIENCY 1) Color flow is present and patency is documented in the following vessels. No DVT or SVT is noted . EIV Common Femoral Vein Deep Femoral Vein Femoral Vein Popliteal Vein Proximal Calf Veins Greater Saph Vein Upper Small Saph Vein 2) There is venous reflux noted at the following venous levels: right EIV, right GSV, left EIV IMPRESSION: Venous reflux as noted. No evidence for DVT.
== END | disposition home or self-care (01) ==
LOC: RADUSWWP 13:06
PROVIDERS: ATTEND Family Medicine
DX: I87.2 Venous insufficiency (chronic) (peripheral) (principal)
CPT/HCPCS: 93923; 93970

== ENCOUNTER → 2018-12-22 | Outpatient (CLI) | payer OTHER ==
--- NOTE | 2018-12-22 15:41 | PN ---
PROGRESS NOTE DATE OF SERVICE: 12/22/2018 . A 53-year-old male patient coming in for an annual check regarding his obstructive sleep apnea. The patient was diagnosed having severe ELVA with an AHI of 78. This is an annual check. Over the past 1 year the patient has lost around 5-6 pounds and currently is down to 345 from a baseline of 351. He has severe ELVA with an AHI of 89, and currently he is on CPAP pressure of 14 cm of water. He is using his Resmet air sense CPAP unit. He is very compliant with CPAP he is using the CPAP 100% of the time more than 4 hours is averaging around 5.9 hours of CPAP use per night AHI is down to 0.3 using an AirFit N20 nose mask large size and his leak is around 44 L/minute. Noted nasal dryness. No other dryness. No hypersomnia or sleepiness. He is waking up refreshed and alert during the day. Midfield score is at 1. No issues with hypertension, coronary artery disease or any nocturnal dyspnea, chest pain, or shortness of breath. The patient had a broken ankle relates to an injury and required ORIF. The surgery without any complications. He is also known to have hypertension hyperlipidemia. REVIEW OF SYSTEMS: Fourteen-point review of system was done. Positive for weight loss. No hypersomnia or sleepiness. No sleepwalking or sleep talking. No parasomnias, no sleep paralysis, no cataplexy. PHYSICAL EXAMINATION: BP is 119/74, pulse 72, respirations 16, temperature 98.6, saturation 99% on room air. Height is 5, 11, weight is 345 and BMI is 40.1. GENERAL APPEARANCE: Calm, comfortable. Head: Atraumatic, normocephalic. NECK: Supple. Mallampati class IV. There is no goiter or neck masses. LUNGS: Clear to auscultation. HEART: Sounds regular rate and rhythm. Normal S1, S2. No S3. No murmurs. ABDOMEN: Soft, nontender. No organomegaly. EXTREMITIES: No edema. No cyanosis or clubbing. NEUROLOGIC: Alert and oriented x3. There is no focal neurological deficits. PSYCHIATRIC: Negative for anxiety or depression. Skin is negative for any wounds or ulceration. IMPRESSION: 1. There is obstructive sleep apnea. Severe, yet stable, treated adequately with CPAP pressure of 14 cm of water. Baseline AHI is 89. 2. Obesity with a body mass index of 48.1, with an interval 6 pounds weight loss. 3. Hypertension. 4. Hyperlipidemia. PLAN: Reviewed the CPAP supplies, keep the patient on AirFit N20 large size full nose mask. Encourage weight loss. Keep the CPAP pressure at the same level of 14. Dropped REM time to 15 minutes. Implement good sleep hygiene measures. Will continue to follow. MMROMEL / IJN: [id number] /
== END ==
LOC: SLEEP 13:09
PROVIDERS: ATTEND Internal Medicine Critical Care Medicine
DX: G47.33 Obstructive sleep apnea (adult) (pediatric) (principal); E66.9 Obesity, unspecified; I10 Essential (primary) hypertension; E78.5 Hyperlipidemia, unspecified; Z68.42 Body mass index [BMI] 45.0-49.9, adult; Z99.89 Dependence on other enabling machines and devices

== ENCOUNTER → 2019-06-07 | Outpatient (CLI) | payer OTHER ==
--- NOTE | 2019-06-07 11:46 | US ---
EXAMINATION TYPE: US venous doppler duplex LE LT DATE OF EXAM: 06/07/2019 11:40 AM COMPARISON: NONE CLINICAL HISTORY: M79.662 Pain in lower lt limb, R22.42 swelling of. Pain and swelling. SIDE PERFORMED: Left TECHNIQUE: The lower extremity deep venous system is examined utilizing real time linear array sonog [place] with graded compression, doppler sonography and color-flow sonography. VESSELS IMAGED: External Iliac Vein (EIV) Common Femoral Vein Deep Femoral Vein Greater Saphenous Vein * Femoral Vein Popliteal Vein Small Saphenous Vein * Proximal Calf Veins (* superficial vessels) Left Leg: Negative for DVT IMPRESSION: 1. Left lower extremity ultrasound negative for deep venous thrombosis.
== END | disposition home or self-care (01) ==
LOC: RADUSWWP 11:18
PROVIDERS: ATTEND Internal Medicine
DX: M79.662 Pain in left lower leg (principal); R22.42 Localized swelling, mass and lump, left lower limb

== ENCOUNTER 2019-06-08 21:35 | Emergency (ER) | payer OTHER ==
[2019-06-08 21:42] VITALS: RESP 18; TEMP 98.3
[2019-06-08 23:40] LABS: Basophils # (A) 0.1 k/uL (0-0.2); Basophils % (A) 1 %; Eosinophils # (A) 0.2 k/uL (0-0.7); Eosinophils % (A) 2 %; HGB 13.8 gm/dL (13.0-17.5); Lymphocytes # (A) 1.1 k/uL (1.0-4.8); Lymphocytes % (A) 11 %; MCH 29.6 pg (25.0-35.0); MCHC 34.5 g/dL (31.0-37.0); MCV 85.8 fL (80.0-100.0); Mean Platelet Volume 7.2; Monocytes # (A) 0.5 k/uL (0-1.0); Monocytes % (A) 6 %; Neutrophils # (A) 7.3 k/uL (1.3-7.7); Neutrophils % (A) 77 %; Platelet Count 252 k/uL (150-450); RBC 4.66 m/uL (4.30-5.90); RDW 15.4 % (11.5-15.5); WBC 9.4 k/uL (3.8-10.6)
[2019-06-08 23:55] LABS: Albumin 3.8 g/dL (3.5-5.0); C Reactive Protein 86.5 mg/L (<10.0); Calcium 9.1 mg/dL (8.4-10.2); Potassium 3.9 mmol/L (3.5-5.1); Total Bilirubin 0.5 mg/dL (0.2-1.3); Total Protein 7.4 g/dL (6.3-8.2)
[2019-06-09 00:18] LABS: Erythrocyte Sedimentation Rate 70 mm/hr (0-15)
[2019-06-09] MEDS ORDERED: CEPHALEXIN 500 MG CAP PO STA (00:25)
--- NOTE | 2019-06-09 00:28 | ED ---
Extremity Problem HPI - General Chief complaint: Extremity Problem,Nontraumatic Stated complaint: left leg swollen Time Seen by Provider: 06/08/19 21:40 Source: patient Mode of arrival: ambulatory Limitations: no limitations - History of Present Illness Initial comments: The patient is a 54-year-old male who presents emergency room with reported left lower extremity swelling and redness. He reports that the swelling has been present for the past few days. He did see Dr. Alberts in office who sent for a Doppler ultrasound on the . Ultrasound was negative. He was started on Levaquin for cellulitis. He states she took 1 pill however the swelling has been extending up his leg and is now up to his knee. He reports to increasing pain. He has been able to ambulatory extremity. Denies any trauma. Denies cellulitic history. Reports to a history of heart attack however denies congestive heart failure. No history of DVT or PE. No family history of blood clotting disorders. Denies any recent travel or surgeries. No fevers or chills. Does report to nausea for which she was given a prescription for Zofran for Dr. Alberts. States that his nausea is improved at this time. He denies any chest pain or shortness of breath. No abdominal pain. There are no other alleviating, precipitating or modifying factors - Related Data Home Medications Medication Instructions Recorded Confirmed Metoprolol Tartrate 25 mg PO BID 04/05/16 06/08/19 Simvastatin [Zocor] 40 mg PO DAILY 04/05/16 06/08/19 Cholecalciferol [Vitamin D3] 1,000 unit PO DAILY 08/01/17 06/08/19 Triamterene-Hctz 37.5-25Mg 1 cap PO DAILY 06/16/18 06/08/19 [Dyazide 37.5-25 Capsule] Aspirin EC [Ecotrin Low Dose] 81 mg PO DAILY 09/01/18 06/08/19 Levofloxacin [Levaquin] 500 mg PO DAILY 06/08/19 06/08/19 Lisinopril 40 mg PO DAILY 06/08/19 06/08/19 Ondansetron HCl [Zofran] 4 mg PO TID PRN 06/08/19 06/08/19 Ranitidine HCl [Zantac] 150 mg PO HS 06/08/19 06/08/19 Sertraline [Zoloft] 50 mg PO DAILY 06/08/19 06/08/19 Previous Rx's Medication Instructions Recorded Cephalexin [Keflex] 500 mg PO Q6HR #28 cap 06/09/19 L.acidoph,Paracasei, B.lactis 1 each PO DAILY #30 capsule 06/09/19 [Probiotic] Allergies Allergy/AdvReac Type Severity Reaction Status Date / Time No Known Allergies Allergy Verified 06/08/19 22:55 Review of Systems ROS Statement: Those systems with pertinent positive or pertinent negative responses have been documented in the HPI. ROS Other: All systems not noted in ROS Statement are negative. Past Medical History Past Medical History: GERD/Reflux, Hyperlipidemia, Hypertension, Myocardial Infarction ([place]), Sleep Apnea/CPAP/BIPAP Additional Past Medical History / Comment(s): States no further problems with his heart. Last Myocardial Infarction Date:: 10/2012 History of Any Multi-Drug Resistant Organisms: C-DIFF Date of last positivie culture/infection: November 2017 MDRO Source:: colon Past Surgical History: Orthopedic Surgery Additional Past Surgical History / Comment(s): plastic surgery on face after injury with chainsaw, Colonoscopy. right knee arthroscopy January 2018. ORIF right leg 06-10-18 Past Anesthesia/Blood Transfusion Reactions: No Reported Reaction Past Psychological History: No Psychological Hx Reported Smoking Status: Never smoker Past Alcohol Use History: None Reported Past Drug Use History: None Reported - Past Family History Father Family Medical History: Cancer Additional Family Medical History / Comment(s): Prostate General Exam Limitations: no limitations General appearance: alert, in no apparent distress Head exam: Present: atraumatic, normocephalic, normal inspection Eye exam: Present: normal appearance, PERRL, EOMI. Absent: scleral icterus, conjunctival injection, periorbital swelling ENT exam: Present: normal exam, mucous membranes moist Neck exam: Present: normal inspection. Absent: tenderness, meningismus, lymphadenopathy Respiratory exam: Present: normal lung sounds bilaterally. Absent: respiratory distress, wheezes, rales, rhonchi, stridor Cardiovascular Exam: Present: regular rate, normal rhythm, normal heart sounds. Absent: systolic murmur, diastolic murmur, rubs, gallop, clicks GI/Abdominal exam: Present: soft, normal bowel sounds. Absent: distended, tenderness, guarding, rebound, rigid Extremities exam: Present: full ROM, normal capillary refill, pedal edema, calf tenderness, other (erythema streaking over anterior left benton. No ecchymosis. accompanying swelling. 2+ DP and PT pulses. Intact distal sensation. Compartments soft). Absent: tenderness, joint swelling Back exam: Present: normal inspection Neurological exam: Present: alert, oriented X3, CN II-XII intact Psychiatric exam: Present: normal affect, normal mood Skin exam: Present: warm, dry, intact, normal color. Absent: rash Course Vital Signs 06/08/19 06/09/19 21:39 00:35 Temperature 98.3 F Pulse Rate 75 67 Respiratory 18 18 Rate Blood Pressure 143/79 129/77 O2 Sat by Pulse 97 99 Oximetry Medical Decision Making - Medical Decision Making Upon arrival the patient is placed into room 11. He is hooked up to continuous pulse ox and cardiac monitoring. I did review the patient's venous Doppler which was negative on the . I did recommend laboratory studies. I did offer repeating a ultrasound however the patient refused. I also offered x-rays but the patient refused. He did agree to laboratory studies. The patient's white blood cell count is 9.4, CRP of 86.5 and sed rate of 70. I did discuss these results with the patient. I did offer hospital admission for IV antibiotics however the patient refuses. As he has only taken one dose of his antibiotic at home I did recommend further treatment with oral antibiotics. I will change the patient to Keflex. The patient does have a history of C. diff and therefore I do de-escalate his antibiotics. The patient did agree to this. He was given a dose in the ER. He is to follow-up with Dr. Alberts within 2 days for reevaluation. If he has any new or worsening symptoms or his cellulitis does worsen with more doses of the antibiotic, he should return to the emergency department. The patient was in agreement with the treatment plan and is discharged home ambulatory in stable condition - Lab Data Result diagrams: 06/08/19 23:33 06/08/19 23:33 Lab Results 06/08/19 06/08/19 Range/Units 23:33 23:33 WBC 9.4 (3.8-10.6) k/uL RBC 4.66 (4.30-5.90) m/uL Hgb 13.8 (13.0-17.5) gm/dL Hct 40.0 (39.0-53.0) % MCV 85.8 (80.0-100.0) fL MCH 29.6 (25.0-35.0) pg MCHC 34.5 (31.0-37.0) g/dL RDW 15.4 (11.5-15.5) % Plt Count 252 (150-450) k/uL Neutrophils % 77 % Lymphocytes % 11 % Monocytes % 6 % Eosinophils % 2 % Basophils % 1 % Neutrophils # 7.3 (1.3-7.7) k/uL Lymphocytes # 1.1 (1.0-4.8) k/uL Monocytes # 0.5 (0-1.0) k/uL Eosinophils # 0.2 (0-0.7) k/uL Basophils # 0.1 (0-0.2) k/uL ESR 70 H (0-15) mm/hr Sodium 136 L (137-145) mmol/L Potassium 3.9 (3.5-5.1) mmol/L Chloride 97 L (98-107) mmol/L Carbon Dioxide 27 (22-30) mmol/L Anion Gap 12 mmol/L BUN 19 (9-20) mg/dL Creatinine 1.13 (0.66-1.25) mg/dL Est GFR (CKD-EPI)AfAm 85 (>60 ml/min/1.73 sqM) Est GFR (CKD-EPI)NonAf 73 (>60 ml/min/1.73 sqM) Glucose 102 H (74-99) mg/dL Calcium 9.1 (8.4-10.2) mg/dL Total Bilirubin 0.5 (0.2-1.3) mg/dL AST 27 (17-59) U/L ALT 26 (21-72) U/L Alkaline Phosphatase 93 (38-126) U/L C-Reactive Protein 86.5 H (<10.0) mg/L Total Protein 7.4 (6.3-8.2) g/dL Albumin 3.8 (3.5-5.0) g/dL Disposition Clinical Impression: Cellulitis Disposition: HOME SELF-CARE Condition: Stable Instructions (If sedation given, give patient instructions): Cellulitis (ED) Additional Instructions: Please follow up with your primary care doctor in 2-4 days. Return to the department for any new or worsening symptoms Prescriptions: Cephalexin [Keflex] 500 mg PO Q6HR #28 cap L.acidoph,Paracasei, B.lactis [Probiotic] 1 each PO DAILY #30 capsule Is patient prescribed a controlled substance at d/c from ED?: No Referrals: Chicho Alberts MD [Primary Care Provider] - 1-2 days Time of Disposition: 00:28
[2019-06-09 00:39] VITALS: BP 129/77; PULSE 67
== END 2019-06-09 00:39 | disposition home or self-care (01) ==
LOC: EC 21:35
DX: L03.116 Cellulitis of left lower limb (principal); E78.5 Hyperlipidemia, unspecified; I10 Essential (primary) hypertension; I25.2 Old myocardial infarction; K21.9 Gastro-esophageal reflux disease without esophagitis; Z79.82 Long term (current) use of aspirin; Z79.899 Other long term (current) drug therapy; Z99.89 Dependence on other enabling machines and devices
CPT/HCPCS: 36415; 80053; 85025; 85652; 86140; 99283

== ENCOUNTER → 2020-11-10 | Outpatient (CLI) | payer OTHER ==
--- NOTE | 2020-11-10 09:28 | MR ---
EXAMINATION TYPE: MR knee RT wo con DATE OF EXAM: 11/10/2020 COMPARISON: Prior MRI right knee October 11, 2017 HISTORY: Pain in right knee with swelling since fall injury September 03. TECHNIQUE: Multiplanar, multisequence imaging of the right knee is performed without IV contrast. FINDINGS: MEDIAL MENISCUS: Persistent medial extrusion medial meniscus with abnormal signal. Truncated appearan ce posterior horn towards the central body consistent with interval tearing. LATERAL MENISCUS: Anterior and posterior horns remain intact without tear. CRUCIATE LIGAMENTS: The posterior cruciate ligament remains intact and unremarkable. Interval signifi cant tear of the anterior cruciate ligament. COLLATERAL LIGAMENTS: The medial collateral ligament and lateral collateral ligament complex are inta ct and unremarkable. EXTENSOR MECHANISM: Visualized quadriceps and patellar tendons are intact. EFFUSION: Small to moderate size suprapatellar joint effusion slightly less prominent from prior. POPLITEAL CYST: No new popliteal/lopez cyst. TRICOMPARTMENT SPACES: Moderate to severe patellofemoral compartment narrowing. Moderate to borderlin e severe medial tibiofemoral compartment joint space loss. Moderate tricompartment joint space spurri ng. CARTILAGE: Contemplation patella with thinning of articular cartilage along the posterior patellar po le redemonstrated. Thinning of articular cartilage medial tibiofemoral compartment. BONE MARROW SIGNAL: No focal abnormal marrow signal is appreciated. OTHER: No additional significant abnormality is appreciated. IMPRESSION: 1. Interval complete ACL tear. 2. Interval progression of full-thickness meniscal tear posterior horn medial meniscus into the centr al body. 3. Small to moderate suprapatellar joint effusion less prominent than prior. 4. Moderate to advanced tricompartment degenerative changes with some interval degenerative progressi on, findings somewhat prominent for patient's age.
== END | disposition home or self-care (01) ==
LOC: RADMRIMAIN 07:41
PROVIDERS: ATTEND Nurse Practitioner Adult Health
DX: S83.241A Other tear of medial meniscus, current injury, right knee, initial encounter (principal); S83.511A Sprain of anterior cruciate ligament of right knee, initial encounter; M17.11 Unilateral primary osteoarthritis, right knee

== ENCOUNTER → 2020-12-06 | Day surgery (SDC) | payer OTHER ==
--- NOTE | 2020-12-05 18:37 | HP ---
HISTORY AND PHYSICAL DATE OF SURGERY: 12/06/2020 Emigdio Silverio is a 55-year-old gentleman seen with progressive right knee pain. We discussed options for treatment. He elected to proceed with arthroscopy. Consent was obtained. PAST MEDICAL HISTORY: Hypertension, hyperlipidemia. PAST SURGICAL HISTORY: Knee arthroscopy. DAILY MEDICATIONS: Lisinopril, metoprolol, Zocor, Naprosyn. ALLERGIES: NONE. SOCIAL HISTORY: He denies tobacco use. PHYSICAL EVALUATION OF THE RIGHT KNEE: Range of motion is zero to 90 degrees. There is a moderate effusion present. He has tenderness along the medial joint line. He has a positive medial Rama's. Ligaments are stable. Hip rotation is without pain. His distal neurovascular exam is intact. RADIOGRAPHS: Radiographs of the right knee revealed moderate osteoarthritis. Right knee MRI revealed medial meniscal tear, ACL tear and osteoarthritis. IMPRESSION: 1. Internal derangement of right knee with medial meniscal tear and ACL tear. 2. Right knee osteoarthritis. 3. Hypertension. 4. Hyperlipidemia. 5. Obesity. PLAN: Right knee arthroscopy with partial meniscectomy and debridement. MMODL / IJN: [id number] /
[~2020-12-06] MED LIST changes: -ACETAMINOPHEN TAB 500 MG TAB PO ONE; +BUPIVACAINE (PF) 0.25% 30 ML VIAL INTRAARTIC ONE; -DEXAMETHASONE SOD PHOSPHATE 10 MG/ML 1 ML VIAL IV ONE; +DEXAMETHASONE SOD PHOSPHATE 4 MG/ML 1 ML VIAL IV ONE; +GLYCOPYRROLATE 0.2 MG/ML 2 ML VIAL ONE; +HYDROcodone/APAP 5-325MG 1 EACH TAB ONE; +HYDROcodone/APAP 5-325MG 1 EACH TAB PO ONE; +HYDROmorphone 0.5 MG/0.5 ML SYRINGE IVP PRN; +LIDOCAINE 1% INJ 10MG/ML (20 ML MDV) ONE; -MIDAZOLAM 2 MG/2 ML VIAL IV PRN; +MIDAZOLAM 2 MG/2 ML VIAL ONE; +PHENYLEPHRINE-0.9% NACL SYG 1,000 MCG/10 ML SYRINGE ONE; +PROPOFOL 10 MG/ML 20 ML VIAL IV ONE; -SCOPOLAMINE 1.5MG/72HR PATCH TRANSDERM ONE; +SUCCINYLCHOLINE CHLORIDE VIAL 200 MG/10 ML VIAL IV ONE; +ceFAZolin 3 GM in SODIUM CHLORIDE 0.9% 100 ML IVPB PRN; +fentaNYL (PF) 50 MCG/ML 2 ML AMP ONE
--- NOTE | 2020-12-06 12:35 | P.OP ---
Date of Procedure: 12/06/20 Preoperative Diagnosis: Internal derangement right knee Postoperative Diagnosis: 1. Tear medial meniscus right knee 2. Grade 3/4 chondromalacia medial femoral condyle right knee 3. Grade 3 chondromalacia patella right knee 4. Reactive synovitis medial, lateral and suprapatellar compartments right knee Procedure(s) Performed: 1. Arthroscopic partial medial meniscectomy right knee 2. Arthroscopic chondroplasty medial femoral condyle right knee 3. Arthroscopic chondroplasty patella right knee 4. Arthroscopic partial synovectomy medial, lateral and suprapatellar compartments right knee Anesthesia: DONYAA, local Surgeon: Pantera Foy Estimated Blood Loss (ml): 7 Pathology: none sent Condition: stable Disposition: PACU Indications for Procedure: 55-year-old gentleman seen with progressive right knee pain. After treatment options were discussed, he elected to proceed with arthroscopy. Operative Findings: see description of procedure Description of Procedure: Patient was taken to the operative suite. Patient underwent a general anesthetic by the department of anesthesia. Patient was given preoperative antibiotics. The right lower extremity was placed in a well-padded arthroscopic leg smith. The right leg was prepped and draped in the normal sterile orthopedic fashion. A lateral parapatellar and suprapatellar incision was made. Trochars were inserted. Arthroscopy was initiated. Suprapatellar pouch revealed diffuse thick reactive synovitis. The patellofemoral joint appeared to articulate congruently. There with grade 3 chondromalacia of the patella with some diffuse osteochondral tears present. The scope was guided into the medial gutter. No loose bodies or plica were identified. The scope was then guided into the medial compartment. A medial parapatellar incision was made. Trocar inserted followed by probe. There was a radial tear involving the posterior horn medial meniscus. There were grade 3/4 chondromalacia changes of the medial femoral condyle with some osteochondral tears present. There was thick reactive synovitis anteriorly. I performed a partial medial meniscectomy getting down to stable meniscal tissue. I performed a chondroplasty of the medial femoral c ondyle getting down to stable osteochondral tissue. I performed a partial synovectomy decompressing the thick reactive synovitis anteriorly. The residual meniscus was probed and found to be stable. The residual osteochondral surface appeared stable. There was good decompression of the synovitis. Scope and probe were then guided into the intercondylar notch. Cruciates were identified, probed and found to be stable. The scope and probe were then guided into lateral compartment. There lateral meniscus revealed some mild superficial fraying on the midbody area. There were grade 1/2 chondromalacia changes with no osteochondral tears. There was thick reactive synovitis anteriorly. I debrided some of this frayed edges of the meniscus with a motorized shaver. I performed a partial synovectomy decompressing thick reactive synovitis. The shaver was removed. There was good decompression of the synovitis. The scope was in guided back into the suprapatellar compartment. I introduced a motorized shaver into the super patellar compartment. I performed a chondroplasty of the patella getting down to stable osteochondral tissue. I performed a partial synovectomy decompressing the thick reactive synovitis. Instruments were now removed from the joint. The joint was infiltrated with .25% Marcaine. Steri- Strips were applied to the portal sites. Sterile dressings were applied. The patient was placed into a BELLO hose. No tourniquet was utilized. The patient was awakened, transferred to a bed and taken to recovery stable satisfactory condition.
[2020-12-06 12:44] VITALS: TEMP 97.3
[2020-12-06 13:17] VITALS: RESP 18
[2020-12-06 13:59] VITALS: BP 112/63; PULSE 59
== END | disposition home or self-care (01) ==
LOC: OR 10:08
PROVIDERS: ATTEND Orthopaedic Surgery
DX: M23.203 Derangement of unspecified medial meniscus due to old tear or injury, right knee (principal); M22.41 Chondromalacia patellae, right knee; M65.861 Other synovitis and tenosynovitis, right lower leg; I10 Essential (primary) hypertension; K21.9 Gastro-esophageal reflux disease without esophagitis; E78.5 Hyperlipidemia, unspecified; Z98.890 Other specified postprocedural states; E66.9 Obesity, unspecified; Z68.42 Body mass index [BMI] 45.0-49.9, adult; I25.2 Old myocardial infarction; G47.33 Obstructive sleep apnea (adult) (pediatric); Z99.89 Dependence on other enabling machines and devices; Z97.2 Presence of dental prosthetic device (complete) (partial); Z79.1 Long term (current) use of non-steroidal anti-inflammatories (NSAID); Z79.899 Other long term (current) drug therapy
CPT/HCPCS: 29881; J2250; J0330; J1100; J0690; J2405; J2001; J3010; J2370; J2704

== ENCOUNTER 2021-01-01 13:21 | Day surgery (SDC) | payer OTHER ==
[2020-12-28 09:40] VITALS: BMI 45.4
--- NOTE | 2021-01-01 09:49 | P.HPIHPCON ---
History of Present Illness H&P Date: 01/01/21 55 year-old male with history of BPH, he has failed medical therapy. Surgical options were discussed with him. underwent a cystoscopy which showed bilateral obstructive prostate lateral lobes. Discussed with him the option of a TURP vs Urolift, Discuss risk and benefit of each approach. He agreed to proceed with urolift. Discussed with him the risk which includes but not limited to bleeding, infection, persistent symptoms, need of additional operation. He understood all the risk and agreed to proceed Consent for Procedure: I have explained the operation/procedure to the patient, including the risks, benefits, side effects, alternative therapies (including not receiving the proposed treatment or service), the likelihood of the patient achieving his/her goals, and potential recuperation problems for the procedure/sedation/analgesia, as well as any blood products, if indicated. I also explained to the patient the risks, benefits and side effects of the alternatives, as well as the risks related to not receiving the proposed procedure, care, treatment, or services. Past Medical History Past Medical History: GERD/Reflux, Hyperlipidemia, Hypertension, Myocardial Infarction ([place]), Osteoarthritis ([place]), Sleep Apnea/CPAP/BIPAP Additional Past Medical History / Comment(s): States has had no further problems with his heart., uses CPAP, urinary urgency, frequent lower leg swelling Last Myocardial Infarction Date:: 10/2012 History of Any Multi-Drug Resistant Organisms: C-DIFF Date of last positivie culture/infection: November 2017 MDRO Source:: colon Past Surgical History: Orthopedic Surgery Additional Past Surgical History / Comment(s): plastic surgery on face after injury with chainsaw, Colonoscopy. right knee arthroscopy January 2018. ORIF right leg 06-10-18, ARTHROSCOPIC RIGHT KNEE AND REPAIR OF MENISCUS Past Anesthesia/Blood Transfusion Reactions: No Reported Reaction Smoking Status: Never smoker - Past Family History Father Family Medical History: Cancer Additional Family Medical History / Comment(s): Prostate Medications and Allergies Home Medications Medication Instructions Recorded Confirmed Type Metoprolol Tartrate 25 mg PO BID 04/05/16 12/28/20 History Simvastatin [Zocor] 40 mg PO DAILY 04/05/16 12/28/20 History Aspirin EC [Ecotrin Low Dose] 81 mg PO DAILY 09/01/18 12/28/20 History Sertraline [Zoloft] 100 mg PO DAILY 06/08/19 12/28/20 History lisinopriL 40 mg PO DAILY 06/08/19 12/28/20 History Oxybutynin ER [Ditropan Xl] 5 mg PO DAILY 12/05/20 12/28/20 History Spironolactone [Aldactone] 50 mg PO DAILY 12/05/20 12/28/20 History Acetaminophen [Tylenol Extra 500 - 1,000 mg PO Q6H PRN 12/28/20 12/28/20 History Strength] Allergies Allergy/AdvReac Type Severity Reaction Status Date / Time No Known Allergies Allergy Verified 12/28/20 09:26 Surgical - Exam - General well developed, no distress, no pain - Eyes PERRL, normal ocular movement - ENT normal nares, normal mucosa - Abdomen Abdomen: soft, non tender - Psychiatric oriented to time, oriented to person, oriented to place Assessment and Plan Assessment: 55 yo male with hx of BPH -OR for Urolift
[~2021-01-01 13:21] MED LIST changes: -BUPIVACAINE (PF) 0.25% 30 ML VIAL INTRAARTIC ONE; -DEXAMETHASONE SOD PHOSPHATE 4 MG/ML 1 ML VIAL IV ONE; -GLYCOPYRROLATE 0.2 MG/ML 2 ML VIAL ONE; -HYDROcodone/APAP 5-325MG 1 EACH TAB ONE; -HYDROcodone/APAP 5-325MG 1 EACH TAB PO ONE; -HYDROmorphone 0.5 MG/0.5 ML SYRINGE IVP PRN; +LIDOCAINE 1% (10MG/ML) FOR IV START INTRADERMA PRN; -LIDOCAINE 1% INJ 10MG/ML (20 ML MDV) ONE; -MIDAZOLAM 2 MG/2 ML VIAL ONE; -ONDANSETRON 4 MG/2 ML VIAL IVP ONE; -PHENYLEPHRINE-0.9% NACL SYG 1,000 MCG/10 ML SYRINGE ONE; -PROPOFOL 10 MG/ML 20 ML VIAL IV ONE; -SUCCINYLCHOLINE CHLORIDE VIAL 200 MG/10 ML VIAL IV ONE; +fentaNYL (PF) 50 MCG/ML 2 ML AMP IV PRN; -fentaNYL (PF) 50 MCG/ML 2 ML AMP ONE
[2021-01-01] MEDS ORDERED: ONDANSETRON 4 MG/2 ML VIAL ONE (14:07)
[2021-01-01] MEDS ORDERED: DEXAMETHASONE SOD PHOSPHATE 4 MG/ML 1 ML VIAL IV ONE (14:16)
[2021-01-01] MEDS ORDERED: SUCCINYLCHOLINE CHLORIDE 100 MG/5 ML SYR IV ONE (15:01)
[2021-01-01] MEDS ORDERED: MIDAZOLAM 2 MG/2 ML VIAL ONE (15:01)
[2021-01-01] MEDS ORDERED: ceFAZolin 1,000 MG VIAL ONE (15:01)
[2021-01-01] MEDS ORDERED: PROPOFOL 10 MG/ML 20 ML VIAL IV ONE (15:01)
[2021-01-01] MEDS ORDERED: fentaNYL (PF) 50 MCG/ML 2 ML AMP ONE (15:01)
[2021-01-01] MEDS ORDERED: SODIUM CHLORIDE 0.9% 100 ML BAG ONE (15:01)
--- NOTE | 2021-01-01 15:47 | P.OP ---
Date of Procedure: 01/01/21 Preoperative Diagnosis: BPH Postoperative Diagnosis: Same Procedure(s) Performed: Cystoscopy, Urolift X 6 Implants: Urolift Implant X 6 Anesthesia: DONYAA Surgeon: Petey Mccartney Estimated Blood Loss (ml): 1 Pathology: none sent Condition: stable Disposition: PACU Indications for Procedure: 55 year-old male with history of BPH, he has failed medical therapy. Surgical options were discussed with him. underwent a cystoscopy which showed bilateral obstructive prostate lateral lobes. Discussed with him the option of a TURP vs Urolift, Discuss risk and benefit of each approach. He agreed to proceed with urolift. Discussed with him the risk which includes but not limited to bleeding, infection, persistent symptoms, need of additional operation. He understood all the risk and agreed to proceed Operative Findings: Bilateral obstructive lateral lobes, 18 Fr meatal stenosis Description of Procedure: Patient was brought to the operating room, general anesthesia was induced. He was prepped and draped in sterile fashion a placed in dorsal lithotomy position. Patient had 18 Fr meatal stenosis, which was dilated to 24-Bangladeshi using the male sounds. Cystoscopy fitted with 20-Bangladeshi sheath was inserted per urethra, cystoscopy was performed which showed no abnormality within the bladder, of note patient had bilateral obstructive lateral lobes. Attention was then carried to the urolift implants. A total of 6 implants were placed, 3 on the right side, and 3 on the left side. Implants were placed distal to the bladder neck, but proximal to the Veru. Repeat cystoscopy showed no evidence of implant perforation into the bladder. Repeat cystoscopy also demonstrated an open anterior channel within the prostate. There was no evidence of bleeding, bladder was emptied at end of the case. Patient tolerated the procedure well was taken to PACU in stable condition
[2021-01-01 15:54] VITALS: TEMP 98
[2021-01-01] MEDS ORDERED: HYDROmorphone 0.5 MG/0.5 ML SYRINGE IVP ONE ×2 (16:10→16:25)
[2021-01-01] MEDS ORDERED: KETOROLAC 15 MG/ML 1 ML VIAL IVP ONE (16:13)
[2021-01-01 16:22] VITALS: RESP 16
[2021-01-01 17:30] VITALS: BP 112/70; PULSE 58
== END 2021-01-01 17:40 | disposition home or self-care (01) ==
LOC: OR 13:21
PROVIDERS: ATTEND Urology
DX: N40.1 Benign prostatic hyperplasia with lower urinary tract symptoms (principal); N35.911 Unspecified urethral stricture, male, meatal; R39.15 Urgency of urination; K21.9 Gastro-esophageal reflux disease without esophagitis; E78.5 Hyperlipidemia, unspecified; I10 Essential (primary) hypertension; I25.2 Old myocardial infarction; M19.90 Unspecified osteoarthritis, unspecified site; G47.33 Obstructive sleep apnea (adult) (pediatric); Z99.89 Dependence on other enabling machines and devices; Z86.19 Personal history of other infectious and parasitic diseases; Z98.890 Other specified postprocedural states; Z80.42 Family history of malignant neoplasm of prostate; Z79.82 Long term (current) use of aspirin; Z79.899 Other long term (current) drug therapy; Z97.2 Presence of dental prosthetic device (complete) (partial)
CPT/HCPCS: 52441; L8699; J2250; J1100; J0690 ×2; J2405; J3010; J1885; J0330; J2704; J1170

== ENCOUNTER 2021-07-25 09:27 | Day surgery (SDC) | payer OTHER ==
[2021-07-24 11:59] VITALS: BMI 56.5
[~2021-07-25 09:27] MED LIST changes: -ceFAZolin 3 GM in SODIUM CHLORIDE 0.9% 100 ML IVPB PRN; -fentaNYL (PF) 50 MCG/ML 2 ML AMP IV PRN
[2021-07-25 10:33] VITALS: TEMP 97.1
[2021-07-25] MEDS ORDERED: LIDOCAINE 1% INJ 10MG/ML (20 ML MDV) ONE (11:35)
[2021-07-25] MEDS ORDERED: PROPOFOL 10 MG/ML 20 ML VIAL IV ONE (11:35)
--- NOTE | 2021-07-25 11:56 | P.PCN ---
Date of Procedure: 07/25/21 Procedure(s) Performed: Brief history: Patient is a pleasant 56-year-old white femalescheduled for an elective upper endoscopy as well as colonoscopy as a part of evaluation of evaluation of iron deficiency anemia and prior history of colon polyps. Procedure performed: Esophagogastroduodenoscopywith biopsy Colonoscopy Preoperative diagnosis: iron deficiency anemia History of colon polyps Anesthesia: MAC Procedure: After informed consent was obtained from the patient was brought into the endoscopy unit and IV sedation was administered by anesthesia under continuous monitoring. Initially upper endoscopy was done. The Olympus GF 160 video endoscope was inserted inserted into the mouth and esophagus intubated without any difficulty and was gradually advanced into the stomach and duodenum and carefully examined. The bulb and second part of the duodenum appeared normal. The scope was then withdrawn into the stomach adequately insufflated with air and upon careful examination the antrumhad mild gastritis and biopsies were done from this area. The body, cardia and fundus appeared normal. The scope was then withdrawn into the esophagus. The GE junction was located at 40 cm to the incisors. Small hiatal hernia noted. though GE junction appeared regular with no erythema erosions or ulcerations. Rest of the esophagus appeared normal. Patient tolerated the procedure well. At this time the patient continued to remain sedation. Initial digital rectal examination was normal. Olympus CF 160 video colonoscope was then inserted into the rectum and gradually advanced to the cecum without any difficulty. Careful examination was performed as the scope was gradually being withdrawn. The prep was excellent. The cecum, ascending colon, transverse colon, descending colon, sigmoid colon and rectum appeared normal. Retroflexion was performed in the rectum and no lesions were noted. Patient tolerated the procedure well. Impression: 1.Upper endoscopy revealed mild antral gastritis, small hiatal hernia and 2.Colonoscopywas within normal limits with no evidence of colorectal neoplasia Recommendations: Findings of this examination were discussed with the patient as well as. Family. He was advised to follow with the biopsy results. He will continue with his current medications and follow antireflux measures. Recommend repeat colonoscopy in 10 years.
[2021-07-25 12:02] VITALS: PULSE 57; RESP 18
[2021-07-25 12:16] VITALS: BP 122/75
== END 2021-07-25 12:45 | disposition home or self-care (01) ==
LOC: ORWHC2ENDO 09:27
PROVIDERS: ATTEND Internal Medicine Gastroenterology
DX: K29.70 Gastritis, unspecified, without bleeding (principal); K44.9 Diaphragmatic hernia without obstruction or gangrene; D50.9 Iron deficiency anemia, unspecified; Z86.010 Personal history of colon polyps
CPT/HCPCS: 45378; 43239; 88305; J2001; J2704

== ENCOUNTER → 2022-04-01 | Outpatient (CLI) | payer OTHER ==
[2022-04-01 14:25] LABS: Basophils # (A) 0.05 X 10*3/uL (0.00-0.10); Basophils % (A) 0.7 %; Eosinophils # (A) 0.24 X 10*3/uL (0.04-0.35); Eosinophils % (A) 3.2 %; HCT 42.2 % (39.6-50.0); HGB 12.8 g/dL (13.0-17.0); Immature Grans, Automated 0.7 %; Lymphocytes # (A) 1.67 X 10*3/uL (0.90-5.00); Lymphocytes % (A) 22.3 %; MCH 28.1 pg (27.0-32.0); MCHC 30.3 g/dL (32.0-37.0); MCV 92.7 fL (80.0-97.0); Monocytes # (A) 0.73 X 10*3/uL (0.20-1.00); Monocytes % (A) 9.7 %; NRBC Per 100 WBC 0 /100 WBCS (0.0-0.0); Neutrophils # (A) 4.76 X 10*3/uL (1.80-7.70); Neutrophils % (A) 63.4 %; Platelet Count 242 X 10*3/uL (140-440); RBC 4.55 X 10*6/uL (4.40-5.60); RDW 13.2 % (11.5-14.5)
[2022-04-01 15:58] LABS: Albumin 4.1 g/dL (3.8-4.9); Albumin/Globulin Ratio 1.26 (1.60-3.17); Anion Gap 9.4 mmol/L (10.00-18.00); BUN/Creat Ratio 22.72 Ratio (12.00-20.00); Blood Urea Nitrogen 23.4 mg/dL (9.0-27.0); Calcium 9.3 mg/dL (8.7-10.3); Carbon Dioxide 24.4 mmol/L (20.0-27.5); Globulin 3.3 g/dL (1.6-3.3); Non-African American GFR(CKD) 80.3 (60.0-200.0); Potassium 5.1 mmol/L (3.5-5.5); Total Bilirubin 0.3 mg/dL (0.30-1.20); Total Protein 7.4 g/dL (6.2-8.2)
== END | disposition home or self-care (01) ==
LOC: LABWHC1 09:42
PROVIDERS: ATTEND Thoracic Surgery (Cardiothoracic Vascular Surgery)
DX: I87.331 Chronic venous hypertension (idiopathic) with ulcer and inflammation of right lower extremity (principal); R73.9 Hyperglycemia, unspecified; I87.2 Venous insufficiency (chronic) (peripheral)
CPT/HCPCS: 36415; 80053; 83036; 85025

== ENCOUNTER → 2022-05-13 | Outpatient (CLI) | payer OTHER ==
[2022-05-13 13:10] VITALS: BP 103/72; PULSE 76; TEMP 98.3; BMI 47.8
[2022-05-13 18:23] LABS: HCT 43.1 % (39.6-50.0); HGB 13.8 g/dL (13.0-17.0); MCH 28.8 pg (27.0-32.0); MCV 89.8 fL (80.0-97.0); Mean Platelet Volume 10.3 fL (9.5-12.2); NRBC Per 100 WBC 0 /100 WBCS (0.0-0.0); Platelet Count 213 X 10*3/uL (140-440); RDW 12.8 % (11.5-14.5); WBC 7.64 X 10*3/uL (4.50-10.00)
[2022-05-13 19:26] LABS: % Iron Saturation 26.3 (15.00-50.00); African American GFR (CKD) 94.1 (60.0-200.0); Albumin 4.2 g/dL (3.8-4.9); Albumin/Globulin Ratio 1.33 (1.60-3.17); Anion Gap 9.7 mmol/L (10.00-18.00); BUN/Creat Ratio 21.08 Ratio (12.00-20.00); Blood Urea Nitrogen 21.5 mg/dL (9.0-27.0); Calcium 9.2 mg/dL (8.7-10.3); Carbon Dioxide 24.6 mmol/L (20.0-27.5); Globulin 3.2 g/dL (1.6-3.3); Non-African American GFR(CKD) 81.2 (60.0-200.0); Potassium 4.7 mmol/L (3.5-5.5); Total Bilirubin 0.3 mg/dL (0.30-1.20); Total Protein 7.4 g/dL (6.2-8.2)
--- NOTE | 2022-05-27 15:27 | P.HPBAR ---
Bariatric H&P - History & Physicial H&P Date: 05/13/22 History & Physicial: Visit/CC: new pt Patient initial contact: Initial weight: Initial weight in pounds: Height: 6 ft Initial BMI: Last weight: Current weight: 160.118 kg Current weight in pounds: 353.00 Current BMI: 47.8 [place] body weight (based on NIH guidelines): 80.739 kg Excess body weight loss: The patient is a 56 year-old M who presents for Bariatric Assessment. Patient presents today for Schumacher constipation. Patient's morbid obese. His BMI is 48. Past Medical History Past Medical History: GERD/Reflux, GI Bleed, Hyperlipidemia, Hypertension, Myocardial Infarction (NH), Osteoarthritis (OA), Sleep Apnea/CPAP/BIPAP Additional Past Medical History / Comment(s): uses CPAP, urinary urgency, frequent lower leg swelling, hx colon polyps Last Myocardial Infarction Date:: 10/2012 History of Any Multi-Drug Resistant Organisms: C-DIFF Year Discovered:: November 2017 MDRO Source:: colon Past Surgical History: Orthopedic Surgery Additional Past Surgical History / Comment(s): plastic surgery on face after injury with chainsaw, Colonoscopy. right knee arthroscopy January 2018. ORIF right leg 06-10-18, ARTHROSCOPIC RIGHT KNEE AND REPAIR OF MENISCUS Past Anesthesia/Blood Transfusion Reactions: No Reported Reaction Past Psychological History: Anxiety, Depression Smoking Status: Never smoker Past Alcohol Use History: None Reported Past Drug Use History: None Reported - Past Family History Father Family Medical History: Cancer Additional Family Medical History / Comment(s): Prostate Surgical - Exam Vital Signs Temp Pulse BP 98.3 F 76 103/72 05/13/22 13:05 05/13/22 13:05 05/13/22 13:05 - General well developed, well nourished, no distress - Eyes PERRL - ENT normal pinna - Neck no masses - Respiratory normal expansion - Cardiovascular Rhythm: regular - Abdomen Abdomen: soft, non tender Results - Labs 05/13/22 14:00 05/13/22 14:00 Bariatric Assessment & Plan Plan: Morbid obesity. Patient has an excellent understanding of sleeve gastrectomy. We went over the risks and benefits of procedure including gastric Staple disruption, bleeding scarring. The patient was scheduled for EGD. Bariatric Checklist Checklist: Plan: Checklist: EGD: 1. Hiatal hernia: 2. H. Pylori: HgbA1c: Vitamin D: Smoking: Never smoker Primary care physician referral: Dr. Walden Psychiatry clearance: Cardiology clearance: Sleep study: Diet journal: VTE risk score: VTE risk level: Rehab needs at discharge:
== END ==
LOC: BARWHC3 12:22
PROVIDERS: ATTEND Surgery
DX: E66.01 Morbid (severe) obesity due to excess calories (principal); Z98.84 Bariatric surgery status; Z68.42 Body mass index [BMI] 45.0-49.9, adult; E78.5 Hyperlipidemia, unspecified; I10 Essential (primary) hypertension; I25.2 Old myocardial infarction; F41.9 Anxiety disorder, unspecified; F32.A Depression, unspecified
CPT/HCPCS: 84425; 80053; 82607; 82728; 82746; 83540; 83550; 85027; 82306; 93005; G0463; 99213